=== PATIENT | female | born 2005 | race African-American/Black ===

== ENCOUNTER 2024-07-28 13:39 | Emergency (ER) | payer OTHER, SELFPAY ==
--- NOTE | 2024-07-28 13:44 | ED.FEMALEGU ---
HPI - Female Genitourinary General Chief complaint: Vaginal Bleeding Stated complaint: /Heavy Bleeding Time Seen by Provider: 07/28/24 13:43 Source: patient Mode of arrival: ambulatory Limitations: no limitations History of Present Illness HPI Narrative: Matilde is a 19-year-old female patient presenting to the clinic today with complaints vaginal bleeding and abdominal cramping. Patient reports she is approximately 6 weeks . Last menstrual period was 06/15/2024. Denies any urinary symptoms. Related Data Home Medications ?Medication ?Instructions ?Recorded ?Confirmed ?Last Taken ?Type No Home Medications 07/28/24 07/28/24 Unknown History Allergies Allergy/AdvReac Type Severity Reaction Status Date / Time No Known Allergies Allergy Verified 07/28/24 13:50 Review of Systems Review of Systems: Pertinent positives per HPI. Patient denies any fever, chills, rash, headache, visual changes, dizziness, cough, runny nose, sore throat, shortness of breath, chest pain, palpitations, nausea, vomiting, diarrhea, constipation, or any urinary issues. PMFSH Comments At the time of my signature, I reviewed and agree with the nursing past medical, surgical, social, and family history. There is no relevant family history pertinent to the patient complaint. Exam Narrative: General: Well-developed, obese, in no apparent distress. Head: Normocephalic, atraumatic. Cardio: Regular rate and rhythm, s1 and s2 normal, no murmur appreciated. Resp: Clear to auscultation bilaterally, no rhonchi, rales, wheezing or rubs. Abdomen: Soft, pliable, bowel sounds present in all quadrants, non-tender to palpation, no organomegly, no CVAT tenderness. : Deferred Course Course Emergency Course: Portions of this record may have been created with voice recognition software. Level of Care: Express Care Visit Vital Signs Vital signs: Vital signs reviewed Transfer Transfered to: [facility] Transportation: Other (private car) Transfer rationale: vaginal bleeding/abdomen cramping/6 weeks preg Accepting physician: Harper Transfer comments: private car- vital signs stable MDM - Female Genitourinary MDM Narrative Medical decision making narrative: At the time of visit patient is resting comfortably on the exam table. Patient appears to be nontoxic. Plan: Patient's vital signs are stable in the clinic today. Patient reports she has been having heavy bleeding with abdominal cramping today and she is 6 weeks . Recommend transfer to the ER for threatened miscarriage. Patient is not from the area so she chose to go to [place] [facility]. Report was called to Dr. Jimenez and report was given for continuity care and he accepts patient for transfer. To be transferred via private car. Differential Diagnosis Differential diagnosis: Likely other (Threatened miscarriage, vaginal bleeding, , hematuria) Discharge Plan Discharge Patient Language: Bengali Prescriptions: No Action No Home Medications Follow-up/Referrals: PHYSICIAN,PRODUCTION HONING MACHINE OPERATOR [Primary Care Provider] - Quality NIHSS Nursing Documentation ED NIHSS nursing documentation: reviewed/agree
[2024-07-28 13:56] VITALS: BP 149/72; PULSE 87; RESP 15; TEMP 36.2; O2SAT 100
== END 2024-07-28 14:00 | disposition short-term general hospital (02) ==
LOC: EXPCOLL 13:44
PROVIDERS: Emergency Provider Nurse Practitioner Family
DX: O20.9 Hemorrhage in early pregnancy, unspecified (principal); O99.891 Other specified diseases and conditions complicating pregnancy; R10.9 Unspecified abdominal pain; Z3A.01 Less than 8 weeks gestation of pregnancy
CPT/HCPCS: 99211; 99212; G0463

== ENCOUNTER 2024-07-28 16:22 | Emergency (ER) | payer OTHER, SELFPAY ==
--- NOTE | ~2024-07-28 | US_ITS ---
EXAMINATION: US OB <= 14 weeks fetus DATE: 07/28/2024 18:55 PAINT GRINDER INDICATION: Bleeding and cramping COMPARISON: 03/23/2024 TECHNIQUE: Real-time transabdominal obstetric ultrasound. FINDINGS: 1 para 0 Last menstrual period is given as 06/15/2024 Estimated date of delivery by last menstrual period is 03/22/2025. No quantitative beta-hCG is available at the time of this dictation. The uterus measures 6.5 x 3.5 x 4.6 cm. No gestational sac is identified at this time. Thickened endometrium is identified within the lower body of the uterus. The right ovary measures 2.8 x 0.8 x 1.2 cm. The left ovary measures 3.0 x 1.6 x 1.7 cm. IMPRESSION: No gestational sac is identified. This finding must be correlated with the serum quantitative beta hCG which was not available at the t davian of this dictation. Reviewed, dictated and finalized at location A. T GRINDER IMPRESSION: No gestational sac is identified. This finding must be correlated with the serum quantitative beta hCG which was not available at the time of this dictation.
[2024-07-28 17:18] VITALS: BP 130/72; PULSE 78; RESP 16; TEMP 36.7; O2SAT 98
--- NOTE | 2024-07-28 17:45 | ED_ITS ---
HPI - General Chief complaint: Vaginal Bleeding <TELLY Pollard Last Filed: 07/28/24 17:56> Stated complaint: 6 weeks , bleeding and cramping <TELLY Pollard Last Filed: 07/28/24 17:56> Time Seen by Provider: 07/28/24 17:52 <TELLY Pollard Last Filed: 07/28/24 17:56> Focused HPI: Patient is a 19-year-old female who presents the ED with report of vaginal bleeding. Patient reports she had a positive test 2 weeks ago. . Currently approximately 6 weeks gestation. She developed vaginal bleeding yesterday and noted passing a few blood clots yesterday. States bleeding was yesterday, but has improved slightly today. Does report lower abdominal pain/ cramping. Denies fevers, dizziness, lightheadedness, urinary complaints. Does not currently have an OBGYN. GENERAL: Well-appearing, well-nourished, and in no acute distress. HEAD: Normocephalic, atraumatic. CHEST: Clear to auscultation. ?No respiratory distress. HEART: Regular rate and rhythm.? ABD: No tenderness throughout abdomen. Normoactive BS NEURO: ?Alert and oriented x3. Patient screened in triage and initial orders placed.? ?Additional care and disposition to be based upon?diagnostic testing and treatment. <Nai Knight PA-C - Last Filed: 07/28/24 17:56> Source: patient <TELLY Pollard Last Filed: 07/28/24 17:56> Mode of arrival: ambulatory <TELLY Pollard Last Filed: 07/28/24 17:56> Limitations: no limitations <TELLY Pollard Last Filed: 07/28/24 17:56> Related Data Home medications: Home Medications ?Medication ?Instructions ?Recorded ?Confirmed ?Last Taken ?Type No Home Medications 07/28/24 Unknown History <TELLY Pollard Last Filed: 07/28/24 17:56> Allergies/Adverse reactions: Allergies Allergy/AdvReac Type Severity Reaction Status Date / Time No Known Allergies Allergy Verified 07/28/24 13:50 <Nai Knight PA-C - Last Filed: 07/28/24 17:56> Exam Narrative: APPEARANCE: No apparent distress. Well-appearing Head: atraumatic. EYES: EOMI, NOSE: Atraumatic NECK: Trachea midline RESPIRATORY: No increased rate of breathing CTAB CARDIOVASCULAR: RRR, ABDOMINAL: Non-distended soft nontender no guarding rebound MUSCULOSKELETAl: No obvious deformities NEURO: Alert. Moving 4/4 extremities SKIN:: Warm, dry. Normal color PSYCHIATRIC: Normal affect <Joseph Sam MD - Last Filed: 07/29/24 19:17> Course Vital Signs Vital signs: Vital Signs Temperature 98.1 F 07/28/24 17:18 Pulse Rate 78 07/28/24 17:18 Respiratory Rate 16 07/28/24 17:18 Blood Pressure 130/72 07/28/24 17:18 Pulse Oximetry 98 07/28/24 17:18 Oxygen Delivery Room Air 07/28/24 17:18 Temperature 98.1 F 07/28/24 17:18 Pulse Rate 78 07/28/24 17:18 Respiratory Rate 16 07/28/24 17:18 Blood Pressure 130/72 07/28/24 17:18 Pulse Oximetry 98 07/28/24 17:18 Oxygen Delivery Room Air 07/28/24 17:18 <Nai Knight PA-C - Last Filed: 07/28/24 17:56> Vital Signs Temperature 98.1 F 07/28/24 17:18 Pulse Rate 78 07/28/24 17:18 Respiratory Rate 16 07/28/24 17:18 Blood Pressure 130/72 07/28/24 17:18 Pulse Oximetry 98 07/28/24 17:18 Oxygen Delivery Room Air 07/28/24 17:18 Temperature 98.1 F 07/28/24 17:18 Pulse Rate 78 07/28/24 17:18 Respiratory Rate 16 07/28/24 17:18 Blood Pressure 130/72 07/28/24 17:18 Pulse Oximetry 98 07/28/24 17:18 Oxygen Delivery Room Air 07/28/24 17:18 <Joseph Sam MD - Last Filed: 07/29/24 19:17> MDM - OB/Uterine Contractions MDM Narrative Medical decision making narrative: MSE by ARACELI in triage. <Nai Knight PA-C - Last Filed: 07/28/24 17:56> MSE by ARACELI in triage. -Course: 19-year-old female presenting with vaginal bleeding. Ultrasound was performed for a test her hCG was obtained. Transvaginal ultrasound did not reveal any intrauterine gestation. Patient was informed of the results and told her that we would speak again after her hCG had returned. The patient had eloped from the department. Ectopic has not been ruled out in this patient. Charge nurse called her listed phone number multiple times and left a message for her to return to the ED. -DDX includes but is not limited to: Miscarriage, ectopic <Joseph Sam MD - Last Filed: 07/29/24 19:17> Lab Data Labs: Lab Results 07/28/24 Range/Units 19:11 Urine Color Yellow (Yellow) Urine Appearance Clear (Clear) Urine pH 7.5 (5.0-9.0) Ur Specific [place] 1.017 (1.001-1.035) Urine Protein 1+ H (Negative) mg/dL Urine Glucose (UA) Negative (Negative) mg/dL Urine Ketones Negative (Negative) mg/dL Ur Blood (Man) 3+ H (Negative) Urine Nitrate Negative (Negative) Urine Bilirubin Negative (Negative) Urine Urobilinogen 1.0 (<2.0) mg/dL Leukocyte Esterase Rfl Negative (Negative) LILLIAN/UL Urine RBC >100 H (0-2) /hpf Urine WBC 0-5 (0-3) /hpf Ur Squamous Epith Cells Occasional (Few) /hpf Urine Bacteria Rare /hpf Urine Casts 0-2 <Nai Knight PA-C - Last Filed: 07/28/24 17:56> Lab Results 07/28/24 Range/Units 19:11 Urine Color Yellow (Yellow) Urine Appearance Clear (Clear) Urine pH 7.5 (5.0-9.0) Ur Specific [place] 1.017 (1.001-1.035) Urine Protein 1+ H (Negative) mg/dL Urine Glucose (UA) Negative (Negative) mg/dL Urine Ketones Negative (Negative) mg/dL Ur Blood (Man) 3+ H (Negative) Urine Nitrate Negative (Negative) Urine Bilirubin Negative (Negative) Urine Urobilinogen 1.0 (<2.0) mg/dL Leukocyte Esterase Rfl Negative (Negative) LILLIAN/UL Urine RBC >100 H (0-2) /hpf Urine WBC 0-5 (0-3) /hpf Ur Squamous Epith Cells Occasional (Few) /hpf Urine Bacteria Rare /hpf Urine Casts 0-2 <Joseph Sam MD - Last Filed: 07/29/24 19:17> Discharge Plan Discharge Clinical Impression: Vaginal bleeding <Nai Knight PA-C - Last Filed: 07/28/24 17:56> Patient Disposition: Elopement After Seen by Prov <Nai Knight PA-C - Last Filed: 07/28/24 17:56> Condition: Stable <Nai Knight PA-C - Last Filed: 07/28/24 17:56> Patient Language: Serbian <Nai Knight PA-C - Last Filed: 07/28/24 17:56> Prescriptions: No Action No Home Medications <Nai Knight PA-C - Last Filed: 07/28/24 17:56> Follow-up/Referrals: PHYSICIAN,STUDENT ACCOUNTS COORDINATOR [Primary Care Provider] - <TELLY Pollard Last Filed: 07/28/24 17:56>
[2024-07-28 19:25] LABS: Add Urine Microscopic? YES; Appearance Urine Clear (Clear); Bacteria Urine Rare /hpf; Bilirubin Urine Negative (Negative); Blood Urine 3+ (Negative); Color Urine Yellow (Yellow); Glucose Urine UA Negative (Negative); Ketones Urine Negative (Negative); Leukocyte Esterase Ur Negative LEU/UL (Negative); Nitrate Urine Negative (Negative); Non Pathogenic Casts 0-2; Protein Urine 1+ mg/dL (Negative); RBC Urine >100 /hpf (0-2); Specific Grav Ur 1.017 (1.001-1.035); Squamous Epithelial Cell Urine Occasional /hpf (Few); WBC Urine 0-5 /hpf (0-3); pH Urine 7.5 (5.0-9.0)
--- NOTE | 2024-07-28 19:56 | PC.NURSE ---
secondary english teacherDenis, attempted to draw labs on pt two times. Room was empty.
--- NOTE | 2024-07-28 19:58 | PC.NURSE ---
Patient was seen exiting ED by endoscopy support specialist.
--- NOTE | 2024-07-28 20:46 | PC.NURSE ---
Per CIHQUI Sam, this RN called and left pt a voicemail stating to call back as we have not ruled out all complications and it is advised that she be seen by doctor.
== END 2024-07-28 20:10 | disposition left against medical advice (07) ==
LOC: ANHED 19:13
PROVIDERS: Physician Assistant; Emergency Provider Emergency Medicine
DX: N93.9 Abnormal uterine and vaginal bleeding, unspecified (principal)
CPT/HCPCS: 76801; 81001; 99283; 99284